=== PATIENT | female | born 1935 | race Caucasian/White ===

== ENCOUNTER 2018-03-21 20:34 | Inpatient (IN) | payer MEDICARE, MEDICAID ==
--- NOTE | 2018-03-21 21:40 | ED Physician Chart ---
ED Chief Complaint/HPI - Patient Information Date Seen:: 03/21/18 Time Seen:: 21:20 Chief Complaint:: generalized weakness History of Present Illness:: Patient was being transported to [facility] for generalized weakness. At the facility patient's pulse was 74. In route patient's pulse decreased at 32 then increase to 50 and then decreased again to 36. 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 Historian:: EMS Review:: Transfer documents Reviewed ED Review of Systems - Review of Systems General/Constitutional: No fever, No chills, No weight loss, No weakness, No diaphoresis, No edema, No loss of appetite, Other (generalized weakness) Skin: No skin lesions, No rash, No bruising Head: No headache, No light-headedness Eyes: No loss of vision, No pain, No diplopia ENT: No earache, No nasal drainage, No sore throat, No tinnitus Neck: No neck pain, No swelling, No thyromegaly, No stiffness, No mass noted Cardio Vascular: No chest pain, No palpitations, No PND, No orthopnea, No edema , other (bradycardia) Pulmonary: No SOB, No cough, No sputum, No wheezing GI: No nausea, No vomiting, No diarrhea, No pain, No melena, No hematochezia, No constipation, No hematemesis G/U: No dysuria, No frequency, No hematuria Musculoskeletal: No bone or joint pain, No back pain, No muscle pain Endocrine: No polyuria, No polydipsia Psychiatric: No prior psych history, No depression, No anxiety, No suicidal ideation Hematopoietic: No bruising, No lymphadenopathy Allergic/Immuno: No urticaria, No angioedema Neurological: No syncope, No focal symptoms, No weakness, No paresthesia, No headache, No seizure, No dizziness, No confusion, No vertigo ED Past Medical History - Past Medical History Past Medical History: HTN, Asthma/COPD, Other (fencepost cerebral infarct; overactive bladder; paranoid schizophrenia Alzheimer's disease; pseudobulbar affect; chronic atrial fibrillation) Family History: Other (unavailable) Social History: Care Facility Surgical History: other (pacemaker) Psychiatricy History: Dementia Medication: Reviewed Family Medical History - Family Member Mother History Unknown: Yes ED Physical Exam - Physical Examination Other Gen/Cons comments:: Chronically ill-appearing; contractured; nonresponsive Head: Atraumatic Eyes: Lids, conjuctiva normal, PERRL Skin: Nl inspection, No rash ENMT: External ears, nose nl Neck: No nuchal rigidity Respiratory: Nl effort/Exclusion, Clear to Auscultation Cardio Vascular: RRR, No murmur, gallop, rubs GI: No tenderness/rebounding/guarding, No organomegaly, No hernia, Normal BS's : No CVA tenderness Extremities: Normal digits & nails ED Labs/Radiology/EKG Results - Lab Results Results: Laboratory Results - last 24 hr 03/21/18 03/21/18 03/21/18 21:55 21:55 21:55 WBC 7.3 RBC 4.62 Hgb 14.2 Hct 41.8 MCV 90.5 MCH 30.8 MCHC Differential 34.1 RDW 12.3 Plt Count 198 MPV 10.9 Neutrophils % 46.5 Lymphocytes % 36.1 Monocytes % 12.0 H Eosinophils % 4.4 Basophils % 1.0 Sodium 139 Potassium 4.1 Chloride 106 Carbon Dioxide 28.9 Anion Gap 8.2 BUN 27 H Creatinine 0.9 Est GFR ( Amer) TNP Est GFR (Non-Af Amer) TNP BUN/Creatinine Ratio 30.0 Glucose 105 Calcium 9.9 B-Natriuretic Peptide 89.0 - EKG Interpretations Rate & Rhythm: EKG shows an atrial pacemaker with a PVC as every other beat Comments:: rate of 93 ED Assessment - Assessment General Assessment: When the patient's heart rate was 90 on the monitor I took her pulse at about 48 which means that either the atrial paced beats or the PVCs were not perfusing. ED Septic Shock - . Is Septic Shock (SBP<90, OR Lactate>4 mmol\L) present?: No ED Reassessment (Disposition) - Reassessment Reassessment Condition:: Unchanged - Diagnosis Diagnosis:: Altered mental status; cardiac arrhythmia - Patient Disposition Admitted to:: ICU Spoke to:: Yevgeniy Quintana Admitting Medical Physician:: Yevgeniy Quintana Condition at Disposition:: Stable, Unchanged
[2018-03-21 22:25] LABS: % EOSINOPHILS 4.4 % (0.0-5.0); % LYMPHOCYTES 36.1 % (20.0-50.0); % NEUTROPHILS 46.5 % (40.0-80.0); ANION GAP 8.2 (7.0-16.0); BASOPHILE ABSOLUTE 0.1 Th/cumm (0-0.2); BUN - UREA NITROGEN 27 mg/dL (7-25); CALCIUM SERUM 9.9 mg/dL (8.6-10.3); CARBON DIOXIDE 28.9 mEq/L (21.0-31.0); CHLORIDE 106 mEq/L (98-107); CREATININE - SERUM 0.9 mg/dL (0.6-1.2); EOSINOPHILE ABSOLUTE 0.3 Th/cmm (0.1-0.4); GLUCOSE 105 mg/dL (70-105); HEMATOCRIT 41.8 % (41.0-60); HEMOGLOBIN 14.2 gm/dL (12-16); LYMPHOCYTE ABSOLUTE 2.6 Th/cmm (1.5-3.0); MEAN CELL VOLUME 90.5 fl (81-100); MEAN CORPUSCULAR HEMOGLOBIN 30.8 pg (27.0-31.0); MEAN CORPUSCULAR HGB CONC 34.1 pg (28.0-36.0); MEAN PLATELET VOLUME 10.9 fl; MONOCYTE ABSOLUTE 0.9 Th/cmm (0.3-1.0); NEUTROPHILE ABSOLUTE 3.4 Th/cmm (1.8-8.0); PLATELET COUNT 198 Th/cmm (150-400); POTASSIUM SERUM 4.1 mEq/L (3.5-5.1); RED BLOOD COUNT 4.62 Mil/cmm (3.80-5.20); RED CELL DISTRIBUTION WIDTH 12.3 % (11.5-20.0); SODIUM SERUM 139 mEq/L (136-145); WHITE BLOOD COUNT 7.3 Th/cmm (4.8-10.8)
[2018-03-22] MEDS ORDERED: Ipratropium Neb 0.5 mg/2.5 mL UD HHN PRN (00:20)
[2018-03-22] MEDS ORDERED: Levothyroxine 0.025 Mg Tab PO ONE (00:20)
[2018-03-22] MEDS ORDERED: Albuterol Nebulizer 2.5mg/3mL HHN PRN (00:20)
[2018-03-22] MEDS ORDERED: Atropine Sulfate 1 mg/mL 1 mL Vial IVP PRN (00:21)
[2018-03-22 01:58] VITALS: BP 121/46
[2018-03-22] MEDS: D5-0.45NS 1,000 ML IV SCH ×2 (03:20→14:05)
--- NOTE | 2018-03-22 08:57 | Diagnostic Imaging Report ---
CHEST X-RAY: AP view INDICATION: pain COMPARISON: None FINDINGS: Left chest wall pacemaker is noted with leads in the region of the right atrium and rib right ventricle. No focal consolidation or effusions. Heart size is normal. Atherosclerosis is noted. Degenerative changes of the spine are noted with possible scoliosis. IMPRESSION: Chronic lung changes with no focal consolidation identified. Pacemaker. Atherosclerotic vascular disease.
[2018-03-22] MEDS: Multivitamin w/ Minerals Tab PO SCH (09:22)
[2018-03-22] MEDS: Aspirin 81mg Chewable Tab PO SCH (09:23)
--- NOTE | 2018-03-22 13:07 | Internal Medicine Prog Note ---
Internal Medicine Subjective - Subjective Service Date: 03/22/18 ([facility] [id number]) Internal Medicine Objective - Results Result Diagrams: 03/21/18 21:55 03/21/18 21:55 Recent Labs: Laboratory Last Values WBC 7.3 Th/cmm (4.8-10.8) 03/21/18 21:55 RBC 4.62 Mil/cmm (3.80-5.20) 03/21/18 21:55 Hgb 14.2 gm/dL (12-16) 03/21/18 21:55 Hct 41.8 % (41.0-60) 03/21/18 21:55 MCV 90.5 fl (81-100) 03/21/18 21:55 MCH 30.8 pg (27.0-31.0) 03/21/18 21:55 MCHC Differential 34.1 pg (28.0-36.0) 03/21/18 21:55 RDW 12.3 % (11.5-20.0) 03/21/18 21:55 Plt Count 198 Th/cmm (150-400) 03/21/18 21:55 MPV 10.9 fl 03/21/18 21:55 Neutrophils % 46.5 % (40.0-80.0) 03/21/18 21:55 Lymphocytes % 36.1 % (20.0-50.0) 03/21/18 21:55 Monocytes % 12.0 % (2.0-10.0) H 03/21/18 21:55 Eosinophils % 4.4 % (0.0-5.0) 03/21/18 21:55 Basophils % 1.0 % (0.0-2.0) 03/21/18 21:55 Sodium 139 mEq/L (136-145) 03/21/18 21:55 Potassium 4.1 mEq/L (3.5-5.1) 03/21/18 21:55 Chloride 106 mEq/L (98-107) 03/21/18 21:55 Carbon Dioxide 28.9 mEq/L (21.0-31.0) 03/21/18 21:55 Anion Gap 8.2 (7.0-16.0) 03/21/18 21:55 BUN 27 mg/dL (7-25) H 08/08/18 21:55 Creatinine 0.9 mg/dL (0.6-1.2) 03/21/18 21:55 Est GFR ( Amer) TNP 03/21/18 21:55 Est GFR (Non-Af Amer) TNP 03/21/18 21:55 BUN/Creatinine Ratio 30.0 03/21/18 21:55 Glucose 105 mg/dL (70-105) 03/21/18 21:55 Calcium 9.9 mg/dL (8.6-10.3) 03/21/18 21:55 Troponin I 0.01 ng/mL (0.01-0.05) 03/21/18 21:55 B-Natriuretic Peptide 89.0 pg/mL (5.0-100.0) 03/21/18 21:55 - Physical Exam Vitals and I&O: Vital Signs Temp 98.0 F 03/22/18 08:00 Pulse 82 03/22/18 12:34 Resp 16 03/22/18 12:34 BP 137/74 03/22/18 10:00 Pulse Ox 92 03/22/18 12:34 Intake & Output 03/21/18 03/22/18 03/22/18 18:59 06:59 18:59 Weight (lbs) 150 lb Other: Weight Source Estimated Active Medications: Current Medications Acetaminophen (Tylenol) 650 mg PO Q4H PRN PRN Reason: Pain Or Fever above 101 Stop: 05/21/18 00:19 Albuterol Sulfate (Albuterol 2.5mg/3ml Neb Ud) 2.5 mg HHN Q2HRT PRN PRN Reason: Shortness of Breath or Wheeze Stop: 05/21/18 00:19 Aspirin (Aspirin Chewable) 81 mg PO DAILY [facility] Stop: 05/21/18 08:59 Last Admin: 03/22/18 09:23 Dose: 81 mg Atorvastatin Calcium (Lipitor) 40 mg PO HS [facility] Stop: 05/21/18 20:59 Atropine Sulfate (Atropine) 0.5 mg IVP Q2HR PRN PRN Reason: Cardiac Arrhythmia Stop: 05/21/18 00:20 Docusate Sodium (Colace) 200 mg PO DAILY [facility] Stop: 05/21/18 08:59 Last Admin: 03/22/18 09:22 Dose: 200 mg Heparin Sodium (Porcine) (Heparin) 5,000 units SUBQ Q12HR [facility] Stop: 05/21/18 08:59 Last Admin: 03/22/18 09:23 Dose: 5,000 units Dextrose/Sodium Chloride (D5-0.45ns) 1,000 mls @ 80 mls/hr IV .[id number] [facility] Stop: 05/21/18 00:29 Last Admin: 03/22/18 03:20 Dose: 80 mls/hr Ipratropium [place] (Atrovent Neb 0.5mg/2.5ml) 0.5 mg HHN Q2HRT PRN PRN Reason: Shortness of Breath or Wheeze Stop: 05/21/18 00:19 Memantine (Namenda) 10 mg PO HS [facility] Stop: 05/21/18 20:59 Ondansetron HCl (Zofran) 4 mg IV Q8H PRN PRN Reason: Nausea / Vomiting Stop: 05/21/18 00:19 Rivastigmine Tartrate (Exelon) 3 mg PO BID [facility] Stop: 05/21/18 08:59 Last Admin: 03/22/18 10:17 Dose: 3 mg
--- NOTE | 2018-03-22 16:18 | History & Physical ---
ADMIT DATE: 03/22/2018 CHIEF COMPLAINT: Generalized weakness. HISTORY OF PRESENT ILLNESS: This is an 82-year-old female who is a resident of [facility] who has a 1-day history of generalized weakness. The patient was initially supposed to be transferred to [facility], but en route to [facility] the patient's heart rate dropped to 32. For this reason, EMS brought patient to the nearest hospital, which was [facility]. For further management, the patient is now admitted here to the ICU unit. PAST MEDICAL HISTORY: Hypertension, asthma, COPD, ____ cerebral infarct, overactive bladder, paranoid schizophrenia, Alzheimer dementia, pseudobulbar affect and chronic AFib. FAMILY HISTORY: Noncontributory. SOCIAL HISTORY: The patient is a group home resident, requiring 24-hour nursing care. SURGICAL HISTORY: Pacemaker. MEDICATIONS: Please see medication list. REVIEW OF SYSTEMS: GENERAL: Denies any fevers and chills. CARDIOVASCULAR: Denies chest pain. RESPIRATORY: Denies shortness of breath. GASTROINTESTINAL: Denies nausea, vomiting and abdominal pain. GENITOURINARY: Denies dysuria. All other systems are reviewed and are negative. PHYSICAL EXAMINATION: GENERAL: The patient is an elderly female, awake, alert and in no apparent distress. VITAL SIGNS: Temperature 99.0, heart rate 86, blood pressure 128/57, respirations 15 and O2 95%. HEENT: Head; normocephalic and atraumatic. NECK: Supple. No mass. LUNGS: Clear bilaterally. HEART: Regular rate and rhythm. No murmurs or gallops. SKIN: Positive for excoriations. LABORATORY DATA: WBC 7.3, H and H 14.2 and 41.8 and platelet of 198. Sodium 139, potassium 4.1, chloride 106, BUN 27 and creatinine 0.9. DIAGNOSTICS: The patient had a chest x-ray done and impression: Chronic lung changes with no focal consolidation identified, pacemaker, atherosclerotic vascular disease. ASSESSMENT: Altered mental status, bradycardia, generalized weakness, hypertension, asthma, history of overactive bladder, history of chronic constipation, schizophrenia, Alzheimer's and history of chronic atrial fibrillation. PLAN: Admit the patient to the ICU unit. We will get Cardiology consultation. The patient may need to have a pacemaker interrogation. We will get followup labs for tomorrow morning. We will continue to follow this patient. [facility]# [id number]
--- NOTE | 2018-03-22 18:16 | Consultation ---
DATE OF CONSULTATION: 03/22/[address] Quintana. HISTORY OF PRESENT ILLNESS: This is an 82-year-old female patient who was transferred from [facility]. On the way, the patient had episodes of bradycardia, rate of 32-36 per minute and this was done in the ambulance. Following this, the patient is admitted to ICU for possible pacemaker malfunction. PAST MEDICAL HISTORY: Sick sinus syndrome with pacemaker, hypertension, CVA with late effect, paranoid schizophrenia, chronic atrial fibrillation, peripheral neuropathy, overactive bladder, hyperlipidemia, dry eye syndrome, psychosis, COPD, and osteoporosis. FAMILY HISTORY: Unremarkable. SOCIAL HISTORY: No history of smoking, alcohol abuse. ALLERGIES: No known allergies. PHYSICAL EXAMINATION: VITAL SIGNS: Blood pressure 132/70, pulse 70, and respirations 28. HEAD: Normocephalic. No lumps or bumps. EYES: Pupils equal, reactive to light. Fundi show AV nicking, sclerae white, conjunctivae pink. NECK: Carotid 2+. Normal upstroke. JVD flat. Thyroid not palpable. Lymph nodes not palpable. CHEST: Shows increased AP diameter. No kyphosis, scoliosis. LUNGS: Bilateral bronchovesicular breath sounds. HEART: PMI fifth intercostal space with lateral to midclavicular line. S1, S2. No S3, S4, soft systolic murmur. ABDOMEN: Soft. Liver, spleen not palpable. No organomegaly. Bowel sounds active. NEUROLOGIC: Unremarkable. EXTREMITIES: Peripheral pulses 2+. No pedal edema. CLINICAL IMPRESSION: 1. Sick sinus syndrome, pacemaker, rule out malfunction. 2. Hypertension. 3. Cerebrovascular accident with late effect. 4. Paranoid schizophrenia. 5. Chronic atrial fibrillation. 6. Peripheral neuropathy. 7. Overactive bladder. 8. Hyperlipidemia. 9. Dry eye syndrome. 10. Psychosis. 11. Chronic obstructive pulmonary disease. 12. Osteoporosis. PLAN: We will evaluate a pacemaker and decide new generator placement. JOB# [id number]
[2018-03-22] MEDS: Atorvastatin Calcium 10 MG TAB PO SCH (22:16)
[2018-03-23] MEDS: D5-0.45NS 1,000 ML IV SCH (01:36)
[2018-03-23 05:13] LABS: % BASOPHILS 0.7 % (0.0-2.0); % EOSINOPHILS 5.5 % (0.0-5.0); % LYMPHOCYTES 25.7 % (20.0-50.0); % MONOCYTES 10.2 % (2.0-10.0); % NEUTROPHILS 57.9 % (40.0-80.0); BASOPHILE ABSOLUTE 0.1 Th/cumm (0-0.2); EOSINOPHILE ABSOLUTE 0.4 Th/cmm (0.1-0.4); HEMATOCRIT 39.4 % (41.0-60); HEMOGLOBIN 13.4 gm/dL (12-16); MEAN CELL VOLUME 89.5 fl (81-100); MEAN CORPUSCULAR HEMOGLOBIN 30.5 pg (27.0-31.0); MEAN CORPUSCULAR HGB CONC 34.1 pg (28.0-36.0); MEAN PLATELET VOLUME 11.1 fl; MONOCYTE ABSOLUTE 0.8 Th/cmm (0.3-1.0); NEUTROPHILE ABSOLUTE 4.4 Th/cmm (1.8-8.0); PLATELET COUNT 197 Th/cmm (150-400); RED CELL DISTRIBUTION WIDTH 12.5 % (11.5-20.0); WHITE BLOOD COUNT 7.7 Th/cmm (4.8-10.8)
[2018-03-23 05:30] LABS: ALB/GLOB RATIO 1.2 (1.0-1.8); ALBUMIN 3.5 gm/dL (3.7-5.3); ALKALINE PHOSPHATASE 53 U/L (34-104); ANION GAP 8.1 (7.0-16.0); BILIRUBIN,TOTAL 0.6 mg/dL (0.3-1.0); BUN - UREA NITROGEN 17 mg/dL (7-25); CALCIUM SERUM 9.1 mg/dL (8.6-10.3); CARBON DIOXIDE 23.2 mEq/L (21.0-31.0); CHLORIDE 109 mEq/L (98-107); CREATININE - SERUM 0.7 mg/dL (0.6-1.2); GLUCOSE 129 mg/dL (70-105); POTASSIUM SERUM 3.3 mEq/L (3.5-5.1); SGOT 15 U/L (13-39); SGPT/ALT 16 U/L (7-52); SODIUM SERUM 137 mEq/L (136-145); TOTAL PROTEIN,SERUM 6.4 gm/dL (6.0-8.3)
[2018-03-23] MEDS: Multivitamin w/ Minerals Tab PO SCH (08:24)
[2018-03-23] MEDS: Aspirin 81mg Chewable Tab PO SCH (08:24)
[2018-03-23] MEDS ORDERED: Potassium Chloride 20 mEq ER Tab PO ONE (09:49)
--- NOTE | 2018-03-23 11:54 | Cardiology ---
03/22/[address] uQintana. M-MODE ECHOCARDIOGRAM: Mitral valve, anterior leaflet of mitral valve shows normal excursion, EF velocity. Posterior leaflet of mitral valve shows normal excursion. Left ventricular posterior wall shows increased thickness, normal excursion. Interventricular septum shows increased thickness, normal excursion, hypertrophy of the left ventricle, ejection fraction 50%. Left atrium normal. Aortic root shows normal dimension, normal excursion of aortic leaflets. CONCLUSION: Hypertrophy of the left ventricle, ejection fraction 50%. 2D ECHO: Long axis view showed normal sized left ventricle with hypertrophy of the left ventricle. Left atrium normal. Aortic root shows normal dimension, normal excursion of aortic leaflets. Short axis view of mitral valve normal. Short axis view of aortic valve normal. Apical four chamber view showed normal sized left ventricle, left atrium, right ventricle, right atrium, tricuspid and mitral valve. Ejection fraction 50%. CONCLUSION: Hypertrophy of the left ventricle, ejection fraction 50%. Doppler study shows mild tricuspid regurgitation, right ventricular systolic pressure 29 mmHg. [facility]# [id number]
--- NOTE | 2018-03-23 13:13 | Internal Medicine Prog Note ---
Internal Medicine Subjective - Subjective Service Date: 03/23/18 Patient seen and examined:: with staff Patient is:: awake, verbal Per staff patient has:: tolerating meds Internal Medicine Objective - Results Result Diagrams: 03/23/18 04:54 03/23/18 04:54 Recent Labs: Laboratory Last Values WBC 7.7 Th/cmm (4.8-10.8) 03/23/18 04:54 RBC 4.40 Mil/cmm (3.80-5.20) 03/23/18 04:54 Hgb 13.4 gm/dL (12-16) 03/23/18 04:54 Hct 39.4 % (41.0-60) L 03/23/18 04:54 MCV 89.5 fl (81-100) 03/23/18 04:54 MCH 30.5 pg (27.0-31.0) 03/23/18 04:54 MCHC Differential 34.1 pg (28.0-36.0) 03/23/18 04:54 RDW 12.5 % (11.5-20.0) 03/23/18 04:54 Plt Count 197 Th/cmm (150-400) 03/23/18 04:54 MPV 11.1 fl 03/23/18 04:54 Neutrophils % 57.9 % (40.0-80.0) 03/23/18 04:54 Lymphocytes % 25.7 % (20.0-50.0) 03/23/18 04:54 Monocytes % 10.2 % (2.0-10.0) H 03/23/18 04:54 Eosinophils % 5.5 % (0.0-5.0) H 03/23/18 04:54 Basophils % 0.7 % (0.0-2.0) 03/23/18 04:54 Sodium 137 mEq/L (136-145) 03/23/18 04:54 Potassium 3.3 mEq/L (3.5-5.1) L 03/23/18 04:54 Chloride 109 mEq/L (98-107) H 03/23/18 04:54 Carbon Dioxide 23.2 mEq/L (21.0-31.0) 03/23/18 04:54 Anion Gap 8.1 (7.0-16.0) 03/23/18 04:54 BUN 17 mg/dL (7-25) 03/23/18 04:54 Creatinine 0.7 mg/dL (0.6-1.2) 03/23/18 04:54 Est GFR ( Amer) TNP 03/23/18 04:54 Est GFR (Non-Af Amer) TNP 03/23/18 04:54 BUN/Creatinine Ratio 24.3 03/23/18 04:54 Glucose 129 mg/dL (70-105) H 03/23/18 04:54 POC Glucose 113 MG/DL (70-105) H 03/22/18 02:03 Calcium 9.1 mg/dL (8.6-10.3) 03/23/18 04:54 Total Bilirubin 0.6 mg/dL (0.3-1.0) 03/23/18 04:54 AST 15 U/L (13-39) 03/23/18 04:54 ALT 16 U/L (7-52) 03/23/18 04:54 Alkaline Phosphatase 53 U/L (34-104) 03/23/18 04:54 Ammonia 42 umol/L (16-53) 03/23/18 04:54 Troponin I 0.01 ng/mL (0.01-0.05) 03/21/18 21:55 B-Natriuretic Peptide 90.1 pg/mL (5.0-100.0) 03/23/18 04:54 Total Protein 6.4 gm/dL (6.0-8.3) 03/23/18 04:54 Albumin 3.5 gm/dL (3.7-5.3) L 03/23/18 04:54 Globulin 2.9 gm/dL 03/23/18 04:54 Albumin/Globulin Ratio 1.2 (1.0-1.8) 03/23/18 04:54 TSH 1.13 uIU/ml (0.34-5.60) 03/23/18 04:54 - Physical Exam Vitals and I&O: Vital Signs Temp 98.3 F 03/23/18 07:00 Pulse 81 03/23/18 10:00 Resp 16 03/23/18 10:00 BP 105/36 03/23/18 10:00 Pulse Ox 95 03/23/18 10:00 Intake & Output 03/22/18 03/23/18 03/23/18 18:59 06:59 18:59 Intake Total 1460 1071.333 Balance 1460 1071.333 Weight (lbs) 119 lb 119 lb Intake: Intake, IV Amount 860 921.333 D5-0.45NS 1,000 ml @ 80 860 921.333 mls/hr IV .[id number] [facility] Rx #:[id number] Oral 600 150 Other: # Voids 3 5 # Bowel Movements 1 Stool Characteristics Formed Hard Brown Weight Source Bedscale Bedscale Active Medications: Current Medications Acetaminophen (Tylenol) 650 mg PO Q4H PRN PRN Reason: Pain Or Fever above 101 Stop: 05/21/18 00:19 Albuterol Sulfate (Albuterol 2.5mg/3ml Neb Ud) 2.5 mg HHN Q2HRT PRN PRN Reason: Shortness of Breath or Wheeze Stop: 05/21/18 00:19 Aspirin (Aspirin Chewable) 81 mg PO DAILY [facility] Stop: 05/21/18 08:59 Last Admin: 03/23/18 08:24 Dose: 81 mg Atorvastatin Calcium (Lipitor) 40 mg PO [facility] Stop: 05/21/18 20:59 Last Admin: 03/22/18 22:16 Dose: Not Given Atropine Sulfate (Atropine) 0.5 mg IVP Q2HR PRN PRN Reason: Cardiac Arrhythmia Stop: 05/21/18 00:20 Docusate Sodium (Colace) 200 mg PO DAILY [facility] Stop: 05/21/18 08:59 Last Admin: 03/23/18 08:24 Dose: 200 mg Heparin Sodium (Porcine) (Heparin) 5,000 units SUBQ Q12HR [facility] Stop: 05/21/18 08:59 Last Admin: 03/23/18 08:24 Dose: 5,000 units Ipratropium [place] (Atrovent Neb 0.5mg/2.5ml) 0.5 mg HHN Q2HRT PRN PRN Reason: Shortness of Breath or Wheeze Stop: 05/21/18 00:19 Lorazepam (Ativan) 0.5 mg PO BID PRN; Protocol PRN Reason: Agitation Stop: 05/22/18 12:44 Memantine (Namenda) 10 mg PO [facility] Stop: 05/21/18 20:59 Last Admin: 03/22/18 22:16 Dose: Not Given Mupirocin (Bactroban Oint) 1 appl TP BID [facility] Stop: 05/22/18 16:59 Ondansetron HCl (Zofran) 4 mg IV Q8H PRN PRN Reason: Nausea / Vomiting Stop: 05/21/18 00:19 Oxybutynin Chloride (Ditropan) 5 mg PO BID [facility] Stop: 05/22/18 16:59 Rivastigmine Tartrate (Exelon) 3 mg PO BID [facility] Stop: 05/21/18 08:59 Last Admin: 03/23/18 08:24 Dose: 3 mg General: weak, alert HEENT: NC/AT, PERRLA Neck: Supple Lungs: CTAB Internal Medicine Assmt/Plan - Assessment Assessment: Altered mental status, bradycardia, generalized weakness, hypertension, asthma, history of overactive bladder, history of chronic constipation, schizophrenia, Alzheimer's and history of chronic atrial fibrillation. - Plan Plan: ok to transfer to telemetry dc ivf follow up labs in am continue current plan of care
[2018-03-23 14:42] LABS: URINE SOURCE CATH
[2018-03-23 14:44] LABS: URINE BILIRUBIN NEGATIVE (NEGATIVE); URINE BLOOD TRACE (NEGATIVE); URINE GLUCOSE (UA) NEGATIVE (NEGATIVE); URINE KETONE NEGATIVE (NEGATIVE); URINE LEUKOCYTE ESTERASE MODERATE (NEGATIVE); URINE MICROSCOPIC INDICATED? YES; URINE NITRATE NEGATIVE (NEGATIVE); URINE PH 7.5 (4.6 - 8.0); URINE PROTEIN NEGATIVE (NEGATIVE); URINE UROBILINOGEN 0.2 E.U./dL (0.2 - 1.0)
[2018-03-23 15:57] LABS: URINE CLARITY CLEAR (CLEAR); URINE COLOR YELLOW
[2018-03-23 16:38] LABS: URINE BACTERIA NONE SEEN /hpf (NONE SEEN); URINE EPITHELIAL CELLS OCCASIONAL /lpf (FEW); URINE RBC 0-2 /hpf (0-5)
[2018-03-23] MEDS: Atorvastatin Calcium 10 MG TAB PO SCH (20:30)
[2018-03-24 05:47] LABS: ANION GAP 9.9 (7.0-16.0); BUN - UREA NITROGEN 12 mg/dL (7-25); CALCIUM SERUM 9.9 mg/dL (8.6-10.3); CARBON DIOXIDE 22.8 mEq/L (21.0-31.0); CHLORIDE 109 mEq/L (98-107); CREATININE - SERUM 0.5 mg/dL (0.6-1.2); GLUCOSE 97 mg/dL (70-105); POTASSIUM SERUM 3.7 mEq/L (3.5-5.1); SODIUM SERUM 138 mEq/L (136-145)
[2018-03-24] MEDS: Multivitamin w/ Minerals Tab PO SCH (08:53)
[2018-03-24] MEDS: Aspirin 81mg Chewable Tab PO SCH (08:54)
[2018-03-24 13:07] LABS: FOLIC ACID 11.8 ng/mL (>3.0)
--- NOTE | 2018-03-24 16:25 | Internal Medicine Prog Note ---
Internal Medicine Subjective - Subjective Service Date: 03/24/18 (very confused, screaming and cussing nursing staff out) Patient seen and examined:: with staff Patient is:: awake, verbal Per staff patient has:: tolerating meds Internal Medicine Objective - Results Result Diagrams: 03/23/18 04:54 03/24/18 04:45 Recent Labs: Laboratory Last Values WBC 7.7 Th/cmm (4.8-10.8) 03/23/18 04:54 RBC 4.40 Mil/cmm (3.80-5.20) 03/23/18 04:54 Hgb 13.4 gm/dL (12-16) 03/23/18 04:54 Hct 39.4 % (41.0-60) L 03/23/18 04:54 MCV 89.5 fl (81-100) 03/23/18 04:54 MCH 30.5 pg (27.0-31.0) 03/23/18 04:54 MCHC Differential 34.1 pg (28.0-36.0) 03/23/18 04:54 RDW 12.5 % (11.5-20.0) 03/23/18 04:54 Plt Count 197 Th/cmm (150-400) 03/23/18 04:54 MPV 11.1 fl 03/23/18 04:54 Neutrophils % 57.9 % (40.0-80.0) 03/23/18 04:54 Lymphocytes % 25.7 % (20.0-50.0) 03/23/18 04:54 Monocytes % 10.2 % (2.0-10.0) H 03/23/18 04:54 Eosinophils % 5.5 % (0.0-5.0) H 03/23/18 04:54 Basophils % 0.7 % (0.0-2.0) 03/23/18 04:54 Sodium 138 mEq/L (136-145) 03/24/18 04:45 Potassium 3.7 mEq/L (3.5-5.1) 03/24/18 04:45 Chloride 109 mEq/L (98-107) H 03/24/18 04:45 Carbon Dioxide 22.8 mEq/L (21.0-31.0) 03/24/18 04:45 Anion Gap 9.9 (7.0-16.0) 03/24/18 04:45 BUN 12 mg/dL (7-25) 03/24/18 04:45 Creatinine 0.5 mg/dL (0.6-1.2) L 03/24/18 04:45 Est GFR ( Amer) TNP 03/24/18 04:45 Est GFR (Non-Af Amer) TNP 03/24/18 04:45 BUN/Creatinine Ratio 24.0 03/24/18 04:45 Glucose 97 mg/dL (70-105) 03/24/18 04:45 POC Glucose 113 MG/DL (70-105) H 03/22/18 02:03 Calcium 9.9 mg/dL (8.6-10.3) 03/24/18 04:45 Total Bilirubin 0.6 mg/dL (0.3-1.0) 03/23/18 04:54 AST 15 U/L (13-39) 03/23/18 04:54 ALT 16 U/L (7-52) 03/23/18 04:54 Alkaline Phosphatase 53 U/L (34-104) 03/23/18 04:54 Ammonia 42 umol/L (16-53) 03/23/18 04:54 Troponin I 0.01 ng/mL (0.01-0.05) 03/21/18 21:55 B-Natriuretic Peptide 90.1 pg/mL (5.0-100.0) 03/23/18 04:54 Total Protein 6.4 gm/dL (6.0-8.3) 03/23/18 04:54 Albumin 3.5 gm/dL (3.7-5.3) L 03/23/18 04:54 Globulin 2.9 gm/dL 03/23/18 04:54 Albumin/Globulin Ratio 1.2 (1.0-1.8) 03/23/18 04:54 Vitamin B12 1767 pg/mL (232-1245) H 03/23/18 04:54 Folic Acid 11.8 ng/mL (>3.0) 03/23/18 04:54 TSH 1.13 uIU/ml (0.34-5.60) 03/23/18 04:54 Urine Source CATH 03/23/18 14:36 Urine Color YELLOW 03/23/18 14:36 Urine Clarity CLEAR (CLEAR) 03/23/18 14:36 Urine pH 7.5 (4.6 - 8.0) 03/23/18 14:36 Ur Specific [place] 1.010 (1.005-1.030) 03/23/18 14:36 Urine Protein NEGATIVE mg/dL (NEGATIVE) 03/23/18 14:36 Urine Glucose (UA) NEGATIVE mg/dL (NEGATIVE) 03/23/18 14:36 Urine Ketones NEGATIVE mg/dL (NEGATIVE) 03/23/18 14:36 Urine Blood TRACE (NEGATIVE) 03/23/18 14:36 Urine Nitrate NEGATIVE (NEGATIVE) 03/23/18 14:36 Urine Bilirubin NEGATIVE (NEGATIVE) 03/23/18 14:36 Urine Urobilinogen 0.2 E.U./dL (0.2 - 1.0) 03/23/18 14:36 Ur Leukocyte Esterase MODERATE (NEGATIVE) H 03/23/18 14:36 Urine RBC 0-2 /hpf (0-5) 03/23/18 14:36 Urine WBC 2-5 /hpf (0-5) 03/23/18 14:36 Ur Epithelial Cells OCCASIONAL /lpf (FEW) 03/23/18 14:36 Urine Bacteria NONE SEEN /hpf (NONE SEEN) 03/23/18 14:36 - Physical Exam Vitals and I&O: Vital Signs Temp 100.2 F 03/24/18 16:00 Pulse 100 03/24/18 16:00 Resp 18 03/24/18 16:00 BP 146/66 03/24/18 16:00 Pulse Ox 96 03/24/18 08:04 Intake & Output 03/23/18 03/24/18 03/24/18 18:59 06:59 18:59 Intake Total 300 100 Balance 300 100 Weight (lbs) 119 lb 119 lb Intake: Oral 300 100 Other: # Voids 7 6 # Bowel Movements 0 Stool Characteristics Formed Brown Weight Source Bedscale Bedscale Active Medications: Current Medications Acetaminophen (Tylenol) 650 mg PO Q4H PRN PRN Reason: Pain Or Fever above 101 Stop: 05/21/18 00:19 Albuterol Sulfate (Albuterol 2.5mg/3ml Neb Ud) 2.5 mg HHN Q2HRT PRN PRN Reason: Shortness of Breath or Wheeze Stop: 05/21/18 00:19 Aspirin (Aspirin Chewable) 81 mg PO DAILY [facility] Stop: 05/21/18 08:59 Last Admin: 03/24/18 08:54 Dose: 81 mg Atorvastatin Calcium (Lipitor) 40 mg PO HS [facility] Stop: 05/21/18 20:59 Last Admin: 03/23/18 20:30 Dose: 40 mg Atropine Sulfate (Atropine) 0.5 mg IVP Q2HR PRN PRN Reason: Cardiac Arrhythmia Stop: 05/21/18 00:20 Docusate Sodium (Colace) 200 mg PO DAILY [facility] Stop: 05/21/18 08:59 Last Admin: 03/24/18 08:53 Dose: 200 mg Heparin Sodium (Porcine) (Heparin) 5,000 units SUBQ Q12HR [facility] Stop: 05/21/18 08:59 Last Admin: 03/24/18 08:53 Dose: 5,000 units Ipratropium [place] (Atrovent Neb 0.5mg/2.5ml) 0.5 mg HHN Q2HRT PRN PRN Reason: Shortness of Breath or Wheeze Stop: 05/21/18 00:19 Lorazepam (Ativan) 0.5 mg PO BID PRN; Protocol PRN Reason: Agitation Stop: 05/22/18 12:44 Last Admin: 03/24/18 10:21 Dose: 0.5 mg Memantine (Namenda) 10 mg PO HS [facility] Stop: 05/21/18 20:59 Last Admin: 03/23/18 20:30 Dose: 10 mg Mupirocin (Bactroban Oint) 1 appl NS BID [facility] Stop: 03/28/18 09:01 Last Admin: 03/24/18 08:54 Dose: 1 appl Ondansetron HCl (Zofran) 4 mg IV Q8H PRN PRN Reason: Nausea / Vomiting Stop: 05/21/18 00:19 Oxybutynin Chloride (Ditropan) 5 mg PO BID [facility] Stop: 05/22/18 16:59 Last Admin: 03/24/18 08:53 Dose: 5 mg Rivastigmine Tartrate (Exelon) 3 mg PO BID [facility] Stop: 05/21/18 08:59 Last Admin: 03/24/18 08:53 Dose: 3 mg General: alert HEENT: NC/AT, PERRLA Neck: Supple Lungs: CTAB Internal Medicine Assmt/Plan - Assessment Assessment: Altered mental status, bradycardia, generalized weakness, hypertension, asthma, history of overactive bladder, history of chronic constipation, schizophrenia, Alzheimer's and history of chronic atrial fibrillation. - Plan Plan: resume seroquel psych follow up follow up labs in am continue current plan of care Nutritional Asmnt/Malnutr-PDOC - Dietary Evaluation Malnutrition Findings (Please click <Entered> for more info): Nutritional Asmnt/Malnutrition Start: 03/24/18 12: 05 Text: Status: Complete Freq: Protocol: Document 03/24/18 12:05 TALITA (Rec: 03/24/18 12:11 TALITA CALVIN- [email or web address]) Nutritional Asmnt/Malnutrition Patient General Information Diagnosis bradycardia, AMS Pertinent Medical Hx/Surgical Hx chronic A-fib, alzheimer's dementia, pseudobipolar affect , overactive bladder, paranoid schizophrenia, HTN, COPD, cerebral infarct Subjective Information Pt yelling at nurse at time of visit. Current Diet Order/ Nutrition Support CCHO Pertinent Medications lipitor, colace, zofran Pertinent Labs 03/24: Na 138, K 3.7, Cl 109, CO2 22.8, BUN 12, Cr 0.5, Ca 9 .9 Nutritional Hx/Data Height 5 ft 7 in Height (Calculated Centimeters) 170.2 Current Weight (lbs) 119 lb Weight (Calculated Kilograms) 54.0 Weight (Calculated Grams) 01405.5 Body Mass Index (BMI) 18.6 GI Symptoms GI Symptoms None Last BM 03/22 Cultural/Ethnic/Jew Belief unknown Usual diet at home reguarl Skin Integrity/Comment: hubert score 14 Current %PO Fair (50-74%) Estimated Nutritional Goals BEE in Kcals: Using Current wt Calories/Kcals/Kg 25-30kcals/kg Kcals Calculated 1350-1620kcals/day Protein: Using Current wt Protein g/k-1.2g/kg Protein Calculated 54-65g/day Fluid: ml 1350-1620ml/day (1ml/kcal) Nutritional Problem 1. Problem Problem No nutrition diagnosis at this time Intervention/Recommendation Comments Recommend continuing Regular diet Expected Outcomes/Goals Expected Outcomes/Goals PO intake >75%
[2018-03-24] MEDS ORDERED: Haloperidol Lactate 5 mg/mL 1mL Vial IM PRN (18:38)
--- NOTE | 2018-03-24 19:00 | History & Physical ---
ADMIT DATE: 03/24/2018 IDENTIFYING DATA: The patient is an 82-year-old admitted from [facility] for generalized weakness. CHIEF COMPLAINT: "I don not know." HISTORY OF PRESENT ILLNESS: This patient is an 82-year-old who is supposed to be transferred to [facility], but on the route the patient is reported to be ended up having a heart rate dropped to 32 and the patient has been brought to [facility] and admitted and shifted to the ICU. The patient is reported to have been getting easily agitated and out of control and hence, a psychiatric consult has been called to address the issue of the agitation. Chart is reviewed. The patient is interviewed. The patient is reported to have a history of schizophrenia and currently on Seroquel. PAST PSYCHIATRIC HISTORY: Details are not known. MEDICAL HISTORY: Significant for the patient having hypertension, asthma, COPD, cerebral infarct and chronic atrial fibrillation. SUBSTANCE ABUSE HISTORY: None. PHYSICAL OR SEXUAL ABUSE HISTORY: None at this time. MENTAL STATUS EXAMINATION: The patient is an 82-year-old thin built, cooperative. Eye contact is poor. Mood is noted to be irritable. Affect is constricted. Insight and judgment at this time are noted to be still impaired. Impulse control is noted to be limited. The patient has to be given 2 doses of the Ativan to contain in view of the patient's hypotensive and then the cardiac is decided to decrease the dose on the Seroquel to only 25 mg twice a day and the patient is going to be maintained with the lorazepam and will be followed up with the supportive therapy. The patient's short and long-term memory are noted to be very poor. The patient, however, has been getting easily upset during the interview. The patient is going to be monitored with these medications. DIAGNOSTIC IMPRESSION: AXIS I: A. Psychosis, not otherwise specified; history of schizophrenia, chronic paranoid type, by history. B. Dementia of vascular type. PLAN: To lower the dose of the Seroquel and follow the patient with the supportive therapy. Thank you, Dr. Quintana for allowing me to participate in the care of the patient. JOB# [id number]
[2018-03-24] MEDS: Atorvastatin Calcium 10 MG TAB PO SCH (20:32)
[2018-03-25 06:42] LABS: % BASOPHILS 1.1 % (0.0-2.0); % EOSINOPHILS 3.8 % (0.0-5.0); % LYMPHOCYTES 35.4 % (20.0-50.0); % MONOCYTES 13.8 % (2.0-10.0); % NEUTROPHILS 45.9 % (40.0-80.0); BASOPHILE ABSOLUTE 0.1 Th/cumm (0-0.2); EOSINOPHILE ABSOLUTE 0.3 Th/cmm (0.1-0.4); HEMATOCRIT 40.7 % (41.0-60); LYMPHOCYTE ABSOLUTE 2.5 Th/cmm (1.5-3.0); MEAN CELL VOLUME 89.8 fl (81-100); MEAN CORPUSCULAR HEMOGLOBIN 30.9 pg (27.0-31.0); MEAN CORPUSCULAR HGB CONC 34.4 pg (28.0-36.0); MEAN PLATELET VOLUME 11.3 fl; NEUTROPHILE ABSOLUTE 3.1 Th/cmm (1.8-8.0); PLATELET COUNT 191 Th/cmm (150-400); RED BLOOD COUNT 4.53 Mil/cmm (3.80-5.20); RED CELL DISTRIBUTION WIDTH 12.8 % (11.5-20.0)
[2018-03-25 07:13] LABS: BUN - UREA NITROGEN 18 mg/dL (7-25); CALCIUM SERUM 9.9 mg/dL (8.6-10.3); CARBON DIOXIDE 21.7 mEq/L (21.0-31.0); CHLORIDE 109 mEq/L (98-107); CREATININE - SERUM 0.7 mg/dL (0.6-1.2); GLUCOSE 86 mg/dL (70-105); POTASSIUM SERUM 3.7 mEq/L (3.5-5.1); SODIUM SERUM 139 mEq/L (136-145)
[2018-03-25] MEDS: Multivitamin w/ Minerals Tab PO SCH (09:05)
[2018-03-25] MEDS: Aspirin 81mg Chewable Tab PO SCH (09:05)
--- NOTE | 2018-03-25 14:30 | Progress Notes ---
DATE: 03/25/2018 SUBJECTIVE: Staff was spoken to. The patient is interviewed. Mood is noted to be less irritable. The patient has been able to comply with the medication. The patient is currently on Seroquel, which is being given at 25 mg twice a day. The patient has been not showing any agitation. The patient's coping skills are noted to be still poor. The patient has paranoia, but is not taking the ____for this morning. PLAN: To closely monitor the patient and follow. JOB# [id number]
--- NOTE | 2018-03-25 14:54 | Internal Medicine Prog Note ---
Internal Medicine Subjective - Subjective Service Date: 03/25/18 Patient seen and examined:: with staff Patient is:: awake, verbal, agitated, confused Per staff patient has:: tolerating meds Internal Medicine Objective - Results Result Diagrams: 03/25/18 05:40 03/25/18 05:40 Recent Labs: Laboratory Last Values WBC 7.0 Th/cmm (4.8-10.8) 03/25/18 05:40 RBC 4.53 Mil/cmm (3.80-5.20) 03/25/18 05:40 Hgb 14.0 gm/dL (12-16) 03/25/18 05:40 Hct 40.7 % (41.0-60) L 03/25/18 05:40 MCV 89.8 fl (81-100) 03/25/18 05:40 MCH 30.9 pg (27.0-31.0) 03/25/18 05:40 MCHC Differential 34.4 pg (28.0-36.0) 03/25/18 05:40 RDW 12.8 % (11.5-20.0) 03/25/18 05:40 Plt Count 191 Th/cmm (150-400) 03/25/18 05:40 MPV 11.3 fl 03/25/18 05:40 Neutrophils % 45.9 % (40.0-80.0) 03/25/18 05:40 Lymphocytes % 35.4 % (20.0-50.0) 03/25/18 05:40 Monocytes % 13.8 % (2.0-10.0) H 03/25/18 05:40 Eosinophils % 3.8 % (0.0-5.0) 03/25/18 05:40 Basophils % 1.1 % (0.0-2.0) 03/25/18 05:40 Sodium 139 mEq/L (136-145) 03/25/18 05:40 Potassium 3.7 mEq/L (3.5-5.1) 03/25/18 05:40 Chloride 109 mEq/L (98-107) H 03/25/18 05:40 Carbon Dioxide 21.7 mEq/L (21.0-31.0) 03/25/18 05:40 Anion Gap 12.0 (7.0-16.0) 03/25/18 05:40 BUN 18 mg/dL (7-25) 03/25/18 05:40 Creatinine 0.7 mg/dL (0.6-1.2) 03/25/18 05:40 Est GFR ( Amer) TNP 03/25/18 05:40 Est GFR (Non-Af Amer) TNP 03/25/18 05:40 BUN/Creatinine Ratio 25.7 03/25/18 05:40 Glucose 86 mg/dL (70-105) 03/25/18 05:40 POC Glucose 113 MG/DL (70-105) H 03/22/18 02:03 Calcium 9.9 mg/dL (8.6-10.3) 03/25/18 05:40 Total Bilirubin 0.6 mg/dL (0.3-1.0) 03/23/18 04:54 AST 15 U/L (13-39) 03/23/18 04:54 ALT 16 U/L (7-52) 03/23/18 04:54 Alkaline Phosphatase 53 U/L (34-104) 03/23/18 04:54 Ammonia 42 umol/L (16-53) 03/23/18 04:54 Troponin I 0.01 ng/mL (0.01-0.05) 03/21/18 21:55 B-Natriuretic Peptide 90.1 pg/mL (5.0-100.0) 03/23/18 04:54 Total Protein 6.4 gm/dL (6.0-8.3) 03/23/18 04:54 Albumin 3.5 gm/dL (3.7-5.3) L 03/23/18 04:54 Globulin 2.9 gm/dL 03/23/18 04:54 Albumin/Globulin Ratio 1.2 (1.0-1.8) 03/23/18 04:54 Vitamin B12 1767 pg/mL (232-1245) H 03/23/18 04:54 Folic Acid 11.8 ng/mL (>3.0) 03/23/18 04:54 TSH 1.13 uIU/ml (0.34-5.60) 03/23/18 04:54 Urine Source CATH 03/23/18 14:36 Urine Color YELLOW 03/23/18 14:36 Urine Clarity CLEAR (CLEAR) 03/23/18 14:36 Urine pH 7.5 (4.6 - 8.0) 03/23/18 14:36 Ur Specific [place] 1.010 (1.005-1.030) 03/23/18 14:36 Urine Protein NEGATIVE mg/dL (NEGATIVE) 03/23/18 14:36 Urine Glucose (UA) NEGATIVE mg/dL (NEGATIVE) 03/23/18 14:36 Urine Ketones NEGATIVE mg/dL (NEGATIVE) 03/23/18 14:36 Urine Blood TRACE (NEGATIVE) 03/23/18 14:36 Urine Nitrate NEGATIVE (NEGATIVE) 03/23/18 14:36 Urine Bilirubin NEGATIVE (NEGATIVE) 03/23/18 14:36 Urine Urobilinogen 0.2 E.U./dL (0.2 - 1.0) 03/23/18 14:36 Ur Leukocyte Esterase MODERATE (NEGATIVE) H 03/23/18 14:36 Urine RBC 0-2 /hpf (0-5) 03/23/18 14:36 Urine WBC 2-5 /hpf (0-5) 03/23/18 14:36 Ur Epithelial Cells OCCASIONAL /lpf (FEW) 03/23/18 14:36 Urine Bacteria NONE SEEN /hpf (NONE SEEN) 03/23/18 14:36 - Physical Exam Vitals and I&O: Vital Signs Temp 97.1 F 03/25/18 12:24 Pulse 83 03/25/18 12:24 Resp 18 03/25/18 12:24 BP 138/66 03/25/18 12:24 Pulse Ox 95 03/25/18 12:24 Intake & Output 03/24/18 03/25/18 03/25/18 18:59 06:59 18:59 Intake Total 600 100 Balance 600 100 Weight (lbs) 119 lb 119 lb Intake: Oral 600 100 Other: # Voids 5 2 # Bowel Movements 1 Stool Characteristics Formed Brown Weight Source Bedscale Bedscale Active Medications: Current Medications Acetaminophen (Tylenol) 650 mg PO Q4H PRN PRN Reason: Pain Or Fever above 101 Stop: 05/21/18 00:19 Albuterol Sulfate (Albuterol 2.5mg/3ml Neb Ud) 2.5 mg HHN Q2HRT PRN PRN Reason: Shortness of Breath or Wheeze Stop: 05/21/18 00:19 Amlodipine Besylate (Norvasc) 5 mg PO BID [facility] Stop: 05/23/18 16:59 Last Admin: 03/25/18 09:05 Dose: Not Given Aspirin (Aspirin Chewable) 81 mg PO DAILY [facility] Stop: 05/21/18 08:59 Last Admin: 03/25/18 09:05 Dose: Not Given Atorvastatin Calcium (Lipitor) 40 mg PO HS [facility] Stop: 05/21/18 20:59 Last Admin: 03/24/18 20:32 Dose: 40 mg Atropine Sulfate (Atropine) 0.5 mg IVP Q2HR PRN PRN Reason: Cardiac Arrhythmia Stop: 05/21/18 00:20 Docusate Sodium (Colace) 200 mg PO DAILY [facility] Stop: 05/21/18 08:59 Last Admin: 03/25/18 09:05 Dose: Not Given Haloperidol Lactate (Haldol) 2 mg IM DAILY PRN PRN Reason: Agitation Stop: 05/23/18 18:37 Heparin Sodium (Porcine) (Heparin) 5,000 units SUBQ Q12HR [facility] Stop: 05/21/18 08:59 Last Admin: 03/24/18 20:28 Dose: 5,000 units Ipratropium [place] (Atrovent Neb 0.5mg/2.5ml) 0.5 mg HHN Q2HRT PRN PRN Reason: Shortness of Breath or Wheeze Stop: 05/21/18 00:19 Lisinopril (Zestril) 10 mg PO DAILY [facility] Stop: 05/24/18 08:59 Last Admin: 03/25/18 09:05 Dose: Not Given Lorazepam (Ativan) 0.5 mg PO BID PRN; Protocol PRN Reason: Agitation Stop: 05/22/18 12:44 Last Admin: 03/24/18 10:21 Dose: 0.5 mg Memantine (Namenda) 10 mg PO HS [facility] Stop: 05/21/18 20:59 Last Admin: 03/24/18 20:29 Dose: 10 mg Mupirocin (Bactroban Oint) 1 appl NS BID [facility] Stop: 03/28/18 09:01 Last Admin: 03/24/18 16:46 Dose: 1 appl Ondansetron HCl (Zofran) 4 mg IV Q8H PRN PRN Reason: Nausea / Vomiting Stop: 05/21/18 00:19 Oxybutynin Chloride (Ditropan) 5 mg PO BID [facility] Stop: 05/22/18 16:59 Last Admin: 03/25/18 09:05 Dose: Not Given Quetiapine Fumarate (Seroquel) 25 mg PO Q12HR [facility]; Protocol Stop: 05/23/18 20:59 Last Admin: 03/25/18 09:05 Dose: Not Given Rivastigmine Tartrate (Exelon) 3 mg PO BID [facility] Stop: 05/21/18 08:59 Last Admin: 03/25/18 09:05 Dose: Not Given General: alert HEENT: NC/AT, PERRLA Neck: Supple Lungs: CTAB Internal Medicine Assmt/Plan - Assessment Assessment: Altered mental status, bradycardia, generalized weakness, hypertension, asthma, history of overactive bladder, history of chronic constipation, schizophrenia, Alzheimer's and history of chronic atrial fibrillation. - Plan Plan: psych follow up follow up labs in am continue current plan of care Nutritional Asmnt/Malnutr-PDOC - Dietary Evaluation Malnutrition Findings (Please click <Entered> for more info): Nutritional Asmnt/Malnutrition Start: 03/24/18 12: 05 Text: Status: Complete Freq: Protocol: Document 03/24/18 12:05 TALITA (Rec: 03/24/18 12:11 TALITA SIMPSON- FNS1) Nutritional Asmnt/Malnutrition Patient General Information Diagnosis bradycardia, AMS Pertinent Medical Hx/Surgical Hx chronic A-fib, alzheimer's dementia, pseudobipolar affect , overactive bladder, paranoid schizophrenia, HTN, COPD, cerebral infarct Subjective Information Pt yelling at nurse at time of visit. Current Diet Order/ Nutrition Support CCHO Pertinent Medications lipitor, colace, zofran Pertinent Labs 03/24: Na 138, K 3.7, Cl 109, CO2 22.8, BUN 12, Cr 0.5, Ca 9 .9 Nutritional Hx/Data Height 5 ft 7 in Height (Calculated Centimeters) 170.2 Current Weight (lbs) 119 lb Weight (Calculated Kilograms) 54.0 Weight (Calculated Grams) 91257.5 Body Mass Index (BMI) 18.6 GI Symptoms GI Symptoms None Last BM 03/22 Cultural/Ethnic/Amish Belief unknown Usual diet at home reguarl Skin Integrity/Comment: hubert score 14 Current %PO Fair (50-74%) Estimated Nutritional Goals BEE in Kcals: Using Current wt Calories/Kcals/Kg 25-30kcals/kg Kcals Calculated 1350-1620kcals/day Protein: Using Current wt Protein g/k-1.2g/kg Protein Calculated 54-65g/day Fluid: ml 1350-1620ml/day (1ml/kcal) Nutritional Problem 1. Problem Problem No nutrition diagnosis at this time Intervention/Recommendation Comments Recommend continuing Regular diet Expected Outcomes/Goals Expected Outcomes/Goals PO intake >75%
[2018-03-25] MEDS: Atorvastatin Calcium 10 MG TAB PO SCH (20:49)
[2018-03-26 06:32] LABS: % BASOPHILS 0.3 % (0.0-2.0); % EOSINOPHILS 4.1 % (0.0-5.0); % LYMPHOCYTES 29.1 % (20.0-50.0); % MONOCYTES 11.4 % (2.0-10.0); % NEUTROPHILS 55.1 % (40.0-80.0); EOSINOPHILE ABSOLUTE 0.3 Th/cmm (0.1-0.4); MEAN CELL VOLUME 90.4 fl (81-100); MEAN CORPUSCULAR HEMOGLOBIN 30.2 pg (27.0-31.0); MEAN CORPUSCULAR HGB CONC 33.4 pg (28.0-36.0); MEAN PLATELET VOLUME 11.1 fl; MONOCYTE ABSOLUTE 0.8 Th/cmm (0.3-1.0); NEUTROPHILE ABSOLUTE 3.8 Th/cmm (1.8-8.0); PLATELET COUNT 187 Th/cmm (150-400); RED BLOOD COUNT 4.65 Mil/cmm (3.80-5.20); RED CELL DISTRIBUTION WIDTH 12.8 % (11.5-20.0); WHITE BLOOD COUNT 6.9 Th/cmm (4.8-10.8)
[2018-03-26 06:55] LABS: ANION GAP 12.7 (7.0-16.0); BUN - UREA NITROGEN 24 mg/dL (7-25); CALCIUM SERUM 9.9 mg/dL (8.6-10.3); CARBON DIOXIDE 21.1 mEq/L (21.0-31.0); CHLORIDE 107 mEq/L (98-107); CREATININE - SERUM 0.7 mg/dL (0.6-1.2); GLUCOSE 72 mg/dL (70-105); POTASSIUM SERUM 3.8 mEq/L (3.5-5.1); SODIUM SERUM 137 mEq/L (136-145)
[2018-03-26] MEDS: Multivitamin w/ Minerals Tab PO SCH (08:27)
[2018-03-26] MEDS: Aspirin 81mg Chewable Tab PO SCH (08:28)
--- NOTE | 2018-03-26 13:11 | Internal Medicine Prog Note ---
Internal Medicine Subjective - Subjective Service Date: 03/26/18 ([id number] dc summary ) Patient is:: awake, verbal, agitated, confused Per staff patient has:: tolerating meds Internal Medicine Objective - Results Result Diagrams: 03/26/18 06:05 03/26/18 06:05 Recent Labs: Laboratory Last Values WBC 6.9 Th/cmm (4.8-10.8) 03/26/18 06:05 RBC 4.65 Mil/cmm (3.80-5.20) 03/26/18 06:05 Hgb 14.0 gm/dL (12-16) 03/26/18 06:05 Hct 42.0 % (41.0-60) 03/26/18 06:05 MCV 90.4 fl (81-100) 03/26/18 06:05 MCH 30.2 pg (27.0-31.0) 03/26/18 06:05 MCHC Differential 33.4 pg (28.0-36.0) 03/26/18 06:05 RDW 12.8 % (11.5-20.0) 03/26/18 06:05 Plt Count 187 Th/cmm (150-400) 03/26/18 06:05 MPV 11.1 fl 03/26/18 06:05 Neutrophils % 55.1 % (40.0-80.0) 03/26/18 06:05 Lymphocytes % 29.1 % (20.0-50.0) 03/26/18 06:05 Monocytes % 11.4 % (2.0-10.0) H 03/26/18 06:05 Eosinophils % 4.1 % (0.0-5.0) 03/26/18 06:05 Basophils % 0.3 % (0.0-2.0) 03/26/18 06:05 Sodium 137 mEq/L (136-145) 03/26/18 06:05 Potassium 3.8 mEq/L (3.5-5.1) 03/26/18 06:05 Chloride 107 mEq/L (98-107) 03/26/18 06:05 Carbon Dioxide 21.1 mEq/L (21.0-31.0) 03/26/18 06:05 Anion Gap 12.7 (7.0-16.0) 03/26/18 06:05 BUN 24 mg/dL (7-25) 03/26/18 06:05 Creatinine 0.7 mg/dL (0.6-1.2) 03/26/18 06:05 Est GFR ( Amer) TNP 03/26/18 06:05 Est GFR (Non-Af Amer) TNP 03/26/18 06:05 BUN/Creatinine Ratio 34.3 03/26/18 06:05 Glucose 72 mg/dL (70-105) 03/26/18 06:05 POC Glucose 113 MG/DL (70-105) H 03/22/18 02:03 Calcium 9.9 mg/dL (8.6-10.3) 03/26/18 06:05 Total Bilirubin 0.6 mg/dL (0.3-1.0) 03/23/18 04:54 AST 15 U/L (13-39) 03/23/18 04:54 ALT 16 U/L (7-52) 03/23/18 04:54 Alkaline Phosphatase 53 U/L (34-104) 03/23/18 04:54 Ammonia 42 umol/L (16-53) 03/23/18 04:54 Troponin I 0.01 ng/mL (0.01-0.05) 03/21/18 21:55 B-Natriuretic Peptide 90.1 pg/mL (5.0-100.0) 03/23/18 04:54 Total Protein 6.4 gm/dL (6.0-8.3) 03/23/18 04:54 Albumin 3.5 gm/dL (3.7-5.3) L 03/23/18 04:54 Globulin 2.9 gm/dL 03/23/18 04:54 Albumin/Globulin Ratio 1.2 (1.0-1.8) 03/23/18 04:54 Vitamin B12 1767 pg/mL (232-1245) H 03/23/18 04:54 Folic Acid 11.8 ng/mL (>3.0) 03/23/18 04:54 TSH 1.13 uIU/ml (0.34-5.60) 03/23/18 04:54 Urine Source CATH 03/23/18 14:36 Urine Color YELLOW 03/23/18 14:36 Urine Clarity CLEAR (CLEAR) 03/23/18 14:36 Urine pH 7.5 (4.6 - 8.0) 03/23/18 14:36 Ur Specific [place] 1.010 (1.005-1.030) 03/23/18 14:36 Urine Protein NEGATIVE mg/dL (NEGATIVE) 03/23/18 14:36 Urine Glucose (UA) NEGATIVE mg/dL (NEGATIVE) 03/23/18 14:36 Urine Ketones NEGATIVE mg/dL (NEGATIVE) 03/23/18 14:36 Urine Blood TRACE (NEGATIVE) 03/23/18 14:36 Urine Nitrate NEGATIVE (NEGATIVE) 03/23/18 14:36 Urine Bilirubin NEGATIVE (NEGATIVE) 03/23/18 14:36 Urine Urobilinogen 0.2 E.U./dL (0.2 - 1.0) 03/23/18 14:36 Ur Leukocyte Esterase MODERATE (NEGATIVE) H 03/23/18 14:36 Urine RBC 0-2 /hpf (0-5) 03/23/18 14:36 Urine WBC 2-5 /hpf (0-5) 03/23/18 14:36 Ur Epithelial Cells OCCASIONAL /lpf (FEW) 03/23/18 14:36 Urine Bacteria NONE SEEN /hpf (NONE SEEN) 03/23/18 14:36 - Physical Exam Vitals and I&O: Vital Signs Temp 97.3 F 03/26/18 12:08 Pulse 63 03/26/18 12:08 Resp 18 03/26/18 12:08 BP 117/63 03/26/18 12:08 Pulse Ox 96 03/26/18 12:08 Intake & Output 03/25/18 03/26/18 03/26/18 18:59 06:59 18:59 Intake Total 300 Output Total 0 Balance 300 Weight (lbs) 99 lb 6.4 oz Intake: Oral 300 Output: Stool 0 Other: # Voids 3 Weight Source Bedscale Active Medications: Current Medications Acetaminophen (Tylenol) 650 mg PO Q4H PRN PRN Reason: Pain Or Fever above 101 Stop: 05/21/18 00:19 Albuterol Sulfate (Albuterol 2.5mg/3ml Neb Ud) 2.5 mg HHN Q2HRT PRN PRN Reason: Shortness of Breath or Wheeze Stop: 05/21/18 00:19 Amlodipine Besylate (Norvasc) 5 mg PO BID [facility] Stop: 05/23/18 16:59 Last Admin: 03/26/18 08:28 Dose: Not Given Aspirin (Aspirin Chewable) 81 mg PO DAILY [facility] Stop: 05/21/18 08:59 Last Admin: 03/26/18 08:28 Dose: 81 mg Atorvastatin Calcium (Lipitor) 40 mg PO HS [facility] Stop: 05/21/18 20:59 Last Admin: 03/25/18 20:49 Dose: 40 mg Atropine Sulfate (Atropine) 0.5 mg IVP Q2HR PRN PRN Reason: Cardiac Arrhythmia Stop: 05/21/18 00:20 Docusate Sodium (Colace) 200 mg PO DAILY [facility] Stop: 05/21/18 08:59 Last Admin: 03/26/18 08:27 Dose: 200 mg Haloperidol Lactate (Haldol) 2 mg IM DAILY PRN PRN Reason: Agitation Stop: 05/23/18 18:37 Heparin Sodium (Porcine) (Heparin) 5,000 units SUBQ Q12HR [facility] Stop: 05/21/18 08:59 Last Admin: 03/26/18 08:29 Dose: 5,000 units Ipratropium [place] (Atrovent Neb 0.5mg/2.5ml) 0.5 mg HHN Q2HRT PRN PRN Reason: Shortness of Breath or Wheeze Stop: 05/21/18 00:19 Lisinopril (Zestril) 10 mg PO DAILY [facility] Stop: 05/24/18 08:59 Last Admin: 03/26/18 08:29 Dose: Not Given Lorazepam (Ativan) 0.5 mg PO BID PRN; Protocol PRN Reason: Agitation Stop: 05/22/18 12:44 Last Admin: 03/24/18 10:21 Dose: 0.5 mg Memantine (Namenda) 10 mg PO HS [facility] Stop: 05/21/18 20:59 Last Admin: 03/25/18 20:48 Dose: 10 mg Mupirocin (Bactroban Oint) 1 appl NS BID [facility] Stop: 03/28/18 09:01 Last Admin: 03/26/18 08:27 Dose: 1 appl Ondansetron HCl (Zofran) 4 mg IV Q8H PRN PRN Reason: Nausea / Vomiting Stop: 05/21/18 00:19 Oxybutynin Chloride (Ditropan) 5 mg PO BID [facility] Stop: 05/22/18 16:59 Last Admin: 03/26/18 08:29 Dose: 5 mg Quetiapine Fumarate (Seroquel) 25 mg PO Q12HR [facility]; Protocol Stop: 05/23/18 20:59 Last Admin: 03/26/18 08:27 Dose: 25 mg Rivastigmine Tartrate (Exelon) 3 mg PO BID [facility] Stop: 05/21/18 08:59 Last Admin: 03/26/18 08:27 Dose: 3 mg General: alert HEENT: NC/AT, PERRLA Neck: Supple Lungs: CTAB Internal Medicine Assmt/Plan - Assessment Assessment: Altered mental status, bradycardia, generalized weakness, hypertension, asthma, history of overactive bladder, history of chronic constipation, schizophrenia, Alzheimer's and history of chronic atrial fibrillation. - Plan Plan: psych follow up follow up labs in am continue current plan of care Nutritional Asmnt/Malnutr-PDOC - Dietary Evaluation Malnutrition Findings (Please click <Entered> for more info): Nutritional Asmnt/Malnutrition Start: 03/24/18 12: 05 Text: Status: Complete Freq: Protocol: Document 03/24/18 12:05 TALITA (Rec: 03/24/18 12:11 TALITA SIMPSON- [email or web address]) Nutritional Asmnt/Malnutrition Patient General Information Diagnosis bradycardia, AMS Pertinent Medical Hx/Surgical Hx chronic A-fib, alzheimer's dementia, pseudobipolar affect , overactive bladder, paranoid schizophrenia, HTN, COPD, cerebral infarct Subjective Information Pt yelling at nurse at time of visit. Current Diet Order/ Nutrition Support CCHO Pertinent Medications lipitor, colace, zofran Pertinent Labs 03/24: Na 138, K 3.7, Cl 109, CO2 22.8, BUN 12, Cr 0.5, Ca 9 .9 Nutritional Hx/Data Height 5 ft 7 in Height (Calculated Centimeters) 170.2 Current Weight (lbs) 119 lb Weight (Calculated Kilograms) 54.0 Weight (Calculated Grams) 59668.5 Body Mass Index (BMI) 18.6 GI Symptoms GI Symptoms None Last BM 03/22 Cultural/Ethnic/Jainism Belief unknown Usual diet at home reguarl Skin Integrity/Comment: hubert score 14 Current %PO Fair (50-74%) Estimated Nutritional Goals BEE in Kcals: Using Current wt Calories/Kcals/Kg 25-30kcals/kg Kcals Calculated 1350-1620kcals/day Protein: Using Current wt Protein g/k-1.2g/kg Protein Calculated 54-65g/day Fluid: ml 1350-1620ml/day (1ml/kcal) Nutritional Problem 1. Problem Problem No nutrition diagnosis at this time Intervention/Recommendation Comments Recommend continuing Regular diet Expected Outcomes/Goals Expected Outcomes/Goals PO intake >75%
--- NOTE | 2018-03-26 17:20 | Discharge Summary ---
DATE OF DISCHARGE: 03/26/2018 DISCHARGE DIAGNOSES: Altered mental status, which is improved; bradycardia, which has resolved; generalized weakness; hypertension; asthma; history of overactive bladder; history of chronic constipation; schizophrenia; Alzheimer's and history of chronic AFib. HISTORY OF PRESENT ILLNESS: An 82-year-old female who is a resident of [facility] who has a 1-day history of generalized weakness. The patient was initially supposed to be transferred to [facility], but en route to [facility] the patient's heart rate dropped to 32 and for this reason, the patient was brought to the nearest hospital, which was [place] for further management. The patient initially admitted to the ICU unit. PHYSICAL EXAMINATION: GENERAL: Elderly female, awake, alert with confusion, in no apparent distress. VITAL SIGNS: Stable. HEENT: Head, normocephalic, atraumatic. NECK: Supple. No mass. LUNGS: Clear bilaterally. HEART: Regular rate and rhythm. ABDOMEN: Soft, nontender. HOSPITAL COURSE: During the hospital stay, the patient was initially admitted to the ICU unit. Cardiology consultation was on the case. The patient had a 2D echocardiogram done and impression is hypertrophy of left ventricle, ejection fraction of 30%. The patient's heart rate has improved and the patient was later then transferred to the telemetry unit. The patient's heart rate has been stabilized. For this reason, the patient was stable for discharge. CONDITION UPON DISCHARGE: Fair. DISPOSITION: [facility]. JOB# [id number]
--- NOTE | 2018-03-26 21:16 | Progress Notes ---
DATE: 03/26/2018 PSYCHIATRIC PROGRESS NOTE SUBJECTIVE: Staff was spoken to. The patient is interviewed. Mood is noted to be less irritable. Affect is appropriate. The patient has paranoid delusions, but denies any command hallucinations. The patient is getting the Haldol 2 mg on a p.r.n. basis. The patient is also on the Seroquel 25 mg every 12 hours. No bizarre behavior is noted, but patient has difficult time to cope with the stress. PLAN: To continue the patient with the supportive therapy, encourage the patient to verbalize the concerns rather than to act out. ASSESSMENT: The patient is still psychotic. Plan to continue the patient with the supportive therapy and followup. [facility]# [id number]
== END 2018-03-26 17:45 | DRG 309 ==
LOC: ER 20:34 → ICU 03-22 00:30 → TELE 03-25 00:05
PROVIDERS: ADMIT Internal Medicine; ATTEND Internal Medicine
DX: R00.1 Bradycardia, unspecified (principal); Z68.1 Body mass index [BMI] 19.9 or less, adult; E44.1 Mild protein-calorie malnutrition; F20.0 Paranoid schizophrenia; I10 Essential (primary) hypertension; K59.00 Constipation, unspecified; N32.81 Overactive bladder; I48.2 Chronic atrial fibrillation; G30.9 Alzheimer's disease, unspecified; F02.80 Dementia in other diseases classified elsewhere, unspecified severity, without behavioral disturbance, psychotic disturbance, mood disturbance, and anxiety; I69.90 Unspecified sequelae of unspecified cerebrovascular disease; G62.9 Polyneuropathy, unspecified; M81.0 Age-related osteoporosis without current pathological fracture; J44.9 Chronic obstructive pulmonary disease, unspecified; E78.5 Hyperlipidemia, unspecified; Z66 Do not resuscitate; H04.129 Dry eye syndrome of unspecified lacrimal gland; F29 Unspecified psychosis not due to a substance or known physiological condition; F01.50 Vascular dementia, unspecified severity, without behavioral disturbance, psychotic disturbance, mood disturbance, and anxiety
CPT/HCPCS: 36415-UA; 71045-TC; 80048-TC; 80053-TC; 81001-TC; 82140-TC; 82607-90; 82746-90; 82948-90; 83880-TC; 84443-TC; 84484-TC; 85025-TC; 93005; 94760; 96374; J1644; Z7610